=== PATIENT | female | born 1985 ===

== ENCOUNTER 2022-03-27 04:18 | Emergency (ER) | payer SELFPAY ==
[~2022-03-27] VITALS: Ht 172.7 cm; Wt 71.8 kg
[2022-03-27 04:28] VITALS: BP 137/106
[2022-03-27] MEDS ORDERED: DIAZEPAM 5 MG/ML 2ML CPJ IV ONE (05:00)
== END 2022-03-27 05:21 | disposition left against medical advice (07) ==
LOC: ER 04:18
DX: Z53.21 Procedure and treatment not carried out due to patient leaving prior to being seen by health care provider (principal); F41.9 Anxiety disorder, unspecified; I47.1 Supraventricular tachycardia; Z91.018 Allergy to other foods
CPT/HCPCS: 81025; 93005; 99283